=== PATIENT | female | born 1975 | race Caucasian/White ===

== ENCOUNTER 2021-04-22 19:34 | Emergency (ER) | payer OTHER ==
[~2021-04-22] VITALS: Ht 167.6 cm; Wt 83.9 kg
[~2021-04-22 19:34] MED LIST: ALPR.5 PO; CHOL10002; IBUP800 PO; ONDA4ODT PO; Oxycodone HCl5 M1 PO
[2021-04-22] MEDS ORDERED: ACET325 PO (19:43)
[2021-04-22 19:53] LABS: Hematocrit 39.3 % (33.0-51.0); Hemoglobin 13.8 g/dL (11.5-16.0); Mean Corpuscular HGB 30.9 pg (26.0-34.0); Mean Corpuscular HGB Conc 35.1 g/dL (31.5-36.5); Mean Corpuscular Volume 88 fL (80-100); Mean Platelet Volume 9.3 fL (9.1-12.4); Platelet Count 131 K/mm3 (150-400); RDW Coefficient Variation 11.5 % (11.7-14.2); Red Blood Cell Count 4.47 M/mm3 (3.80-5.20); White Blood Cell Count 3.28 K/mm3 (4.00-11.30)
[2021-04-22 20:21] LABS: Alanine Aminotransfer (ALT/SGP 36 U/L (12-78); Albumin, Blood 3.7 g/dL (3.4-5.0); Albumin/Globulin Ratio 0.9 (0.8-1.8); Alk Phos 77 U/L (50-136); Anion Gap 7 mmol/L (6-16); Aspartate Aminotrans (AST/SGOT 36 U/L (12-37); Bilirubin, Total 0.7 mg/dL (0.1-1.0); Blood Urea Nitrogen 8 mg/dL (8-24); Bun/Creatinine Ratio 11.9 (12.0-20.0); CO2, Blood 26 mmol/L (21-32); Calcium, Blood 8.7 mg/dL (8.5-10.1); Chloride, Blood 103 mmol/L (98-108); Creatinine, Blood 0.67 mg/dL (0.40-1.00); Globulin, Blood 4.3 g/dL (2.2-4.0); Glomerular Filtration Rate >60 (60-); Glucose, Blood 113 mg/dL (70-99); Potassium, Blood 3.7 mmol/L (3.5-5.5); Sodium, Blood 136 mmol/L (136-145)
[2021-04-22 20:24] LABS: BAND PERCENT MAN 1 % (0-8); BASOPHILS PERCENT MAN 0 % (0-2); EOSINOPHILS PERCENT MAN 0 % (0-6); LYMPHOCYTES % ATYPICAL MANUAL 2 % (0-0); LYMPHOCYTES ABSOLUTE MAN 0.98 K/mm3 (0.84-5.20); LYMPHOCYTES PERCENT MAN 28 % (21-46); MONOCYTES ABSOLUTE MAN 0.26 K/mm3 (0.16-1.47); MONOCYTES PERCENT MAN 8 % (4-13); NEUTROPHILS ABSOLUTE MAN 2.03 K/mm3 (1.96-9.15); SEG NEUTROPHILS PERCENT MAN 61 % (41-73); TOTAL CELLS COUNTED 100
[2021-04-22] MEDS ORDERED: Zofran8 MG PO (21:05)
== END 2021-04-22 21:54 | disposition home or self-care (01) ==
LOC: ER 19:34
PROVIDERS: Emergency Medicine
DX: U07.1 COVID-19 (principal); E86.0 Dehydration; Z88.5 Allergy status to narcotic agent; Z91.048 Other nonmedicinal substance allergy status
CPT/HCPCS: 36415; 71045; 80053; 85025; 96374; 96375; 99284-25; A9270; J1885; J2405; J7030

== ENCOUNTER → 2025-05-14 | Outpatient (CLI) | payer OTHER ==
[~2025-05-14] MED LIST changes: +ACET325 PO; +Zofran8 MG PO
== END ==
LOC: LAB 13:37 → LAB SHORT 13:37
DX: N39.0 Urinary tract infection, site not specified (principal)
CPT/HCPCS: 87077; 87086; 87186